=== PATIENT | male | born 1955 | race Caucasian/White ===

== ENCOUNTER → 2020-03-18 | Outpatient (REF) | payer MEDICARE, OTHER | LOC: M LAB REF 10:49 | PROVIDERS: ATTEND Physician Assistant | DX: L82.1 Other seborrheic keratosis (principal) | CPT/HCPCS: 88305; G0463 ==

== ENCOUNTER → 2020-06-21 | Outpatient (CLI) | payer MEDICARE, OTHER | LOC: M LABSMTC 13:33 | PROVIDERS: ATTEND Pediatrics | DX: Z20.828 Contact with and (suspected) exposure to other viral communicable diseases (principal) ==

== ENCOUNTER 2023-11-28 16:26 | Emergency (ER) | payer MEDICARE, OTHER ==
[~2023-11-28] VITALS: Ht 177.8 cm; Wt 94.5 kg
[2023-11-28] MEDS ORDERED: METO1TAB87 (16:48)
[2023-11-28] MEDS ORDERED: ROSU20TA61 (16:48)
[2023-11-28] MEDS ORDERED: ECOT81TA5 PO (16:48)
[2023-11-28] MEDS ORDERED: CLOP75TA2 (16:48)
[2023-11-28 17:17] LABS: BASO % 0.6 % (0.0-1.0); EOS # 0.1 10^3/uL (0.0-0.5); EOS % 1.9 % (0.0-3.0); HEMATOCRIT 44.8 % (42.0-52.0); LYMPH # 1.6 10^3/uL (1.5-5.0); LYMPH % 29.5 % (24.0-44.0); MEAN CORPUSCULAR HGB CONC 35.7 g/dl (32.0-36.5); MEAN CORPUSCULAR VOLUME 92.4 fl (80.0-96.0); MONO # 0.6 10^3/uL (0.0-0.8); MONO % 10.9 % (2.0-8.0); NEUTROPHILS % 56.9 % (36.0-66.0); PLATELET COUNT, AUTOMATED 165 10^3/uL (150-450); RED BLOOD COUNT 4.85 10^6/uL (4.30-6.10); WHITE BLOOD COUNT 5.3 10^3/uL (4.0-10.0)
[2023-11-28 17:31] LABS: INR 1.2; PROTHROMBIN TIME 14.8 SECONDS (12.5-14.5)
[2023-11-28 17:47] LABS: LIPASE 32 U/L (12-53)
[2023-11-28 17:49] LABS: ALBUMIN 4.2 G/DL (3.2-5.2); ALKALINE PHOSPHATASE 65 U/L (46-116); ALT/SGPT 44 U/L (7.0-40); AST/SGOT 30 U/L (<34); BILIRUBIN,DIRECT 0.3 MG/DL (<0.4); BLOOD UREA NITROGEN 16 MG/DL (9-23); CALCIUM LEVEL 9.1 MG/DL (8.3-10.6); CARBON DIOXIDE LEVEL 28 MMOL/L (20-31); CHLORIDE LEVEL 105 MMOL/L (98-107); CK-MB VALUE MASS 1.7 NG/ML (<3.6); CREATININE FOR GFR 0.88 MG/DL (0.70-1.30); GLOMERULAR FILTRATION RATE > 60.0 (>49); GLUCOSE, FASTING 116 MG/DL (74-106); POTASSIUM SERUM 4.7 MMOL/L (3.5-5.1); SODIUM LEVEL 139 MMOL/L (136-145); TOTAL PROTEIN 6.7 G/DL (5.7-8.2)
[2023-11-28 17:56] LABS: CPK CREATINE PHOSPHOKINASE 140 U/L (46-171); MB/CK RELATIVE INDEX 1.21 (< OR =4)
[2023-11-28 18:52] LABS: CK-MB VALUE MASS 1.6 NG/ML (<3.6)
[2023-11-28 18:54] LABS: MB/CK RELATIVE INDEX 1.25 (< OR =4)
[2023-11-28] MEDS: ACETAMINOPHEN TAB 650MG DOSE (2X325MG) PO ONE (20:37)
[2023-11-28] MEDS ORDERED: NITROGLYCERIN 0.4MG SUBL TABLET SL PRN (20:50)
[2023-11-28] MEDS ORDERED: METOPROLOL TARTRATE 100MG TAB PO SCH (20:50)
[2023-11-29] MEDS: amLODIPine 5 MG TAB PO SCH (01:01)
[2023-11-29] MEDS: METOPROLOL TART 12.5 MG PER 1/2 TAB PO SCH (01:01)
[2023-11-29] MEDS: CLOPIDOGREL 75 MG TAB PO SCH (01:10)
[2023-11-29] MEDS: ROSUVASTATIN 10 MG TAB (CRESTOR) PO SCH (01:21)
[2023-11-29] MEDS: ASPIRIN 81MG CHEW TABLET PO SCH (01:22)
[2023-11-29 06:46] VITALS: BP 139/65; TEMP 98.1; O2SAT 97
[2023-11-29] MEDS ORDERED: CLOPIDOGREL 75 MG TAB PO SCH (09:00)
[2023-11-29] MEDS ORDERED: ASPIRIN 81MG CHEW TABLET PO SCH (09:00)
== END 2023-11-29 06:57 | disposition short-term general hospital (02) ==
LOC: M ED 16:26
DX: I20.0 Unstable angina (principal); R00.1 Bradycardia, unspecified; I44.0 Atrioventricular block, first degree; I45.10 Unspecified right bundle-branch block; I25.2 Old myocardial infarction; I10 Essential (primary) hypertension; E78.5 Hyperlipidemia, unspecified; Z86.79 Personal history of other diseases of the circulatory system; Z79.82 Long term (current) use of aspirin; Z79.899 Other long term (current) drug therapy

== ENCOUNTER → 2024-03-31 | Outpatient (CLI) | payer MEDICARE, OTHER ==
[~2024-03-31] MED LIST: CLOP75TA2; ECOT81TA5 PO; METO1TAB87; ROSU20TA61
== END ==
LOC: M PLAIMG 09:09
PROVIDERS: ATTEND Internal Medicine Cardiovascular Disease
DX: I77.810 Thoracic aortic ectasia (principal); I35.8 Other nonrheumatic aortic valve disorders; I11.9 Hypertensive heart disease without heart failure; I27.20 Pulmonary hypertension, unspecified